=== PATIENT | female | born 2000 | race Caucasian/White ===

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

== ENCOUNTER 2021-05-21 13:07 | Emergency (ER) | payer OTHER ==
[~2021-05-21] VITALS: Ht 167.6 cm; Wt 59.1 kg
[2021-05-21] MEDS: KETOROLAC TROMETHAMINE 30 MG/ML VIAL IM ONE ×2 (14:13→14:29)
[2021-05-21] MEDS ORDERED: IBUPROFEN 600 MG TABLET PO ONE (14:45)
[2021-05-21 15:34] VITALS: BP 119/69
== END 2021-05-21 15:35 | disposition home or self-care (01) ==
LOC: EMS 13:25
DX: S93.401A Sprain of unspecified ligament of right ankle, initial encounter (principal); M79.641 Pain in right hand; X50.1XXA Overexertion from prolonged static or awkward postures, initial encounter; Y93.89 Activity, other specified; Y92.89 Other specified places as the place of occurrence of the external cause; Y99.8 Other external cause status
CPT/HCPCS: 73130; 73610; 73630; 99284; J1885